=== PATIENT | female | born 1995 | race Caucasian/White ===

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

== ENCOUNTER 2017-01-17 16:59 | Emergency (ER) | payer BC ==
[~2017-01-17] VITALS: Ht 170.2 cm; Wt 84.1 kg
[2017-01-17 17:46] LABS: HEMATOCRIT 43.3 % (36.0-46.0); MCH 28.2 PG (29.0-34.0); MCHC 33.9 G/DL (30.0-36.0); MEAN PLAT.VOLUME 9.3 uM^3 (9.5-12.4); PLATELET COUNT 243 K/uL (156-360); RBC DIS.WIDTH-CV 12.1 % (11.8-14.6); RBC DIS.WIDTH-SD 36.8 % (39-53); RED BLOOD COUNT 5.22 M/uL (3.80-5.20); WHITE BLOOD COUNT 7.8 K/uL (4.1-10.2)
[2017-01-17 17:55] LABS: CHLORIDE 105 mEq/L (99-109); POTASSIUM 4.3 mEq/L (3.7-5.4); SODIUM 138 mEq/L (136-147)
[2017-01-17 17:57] LABS: GLUCOSE 94 mg/dL (70-99)
[2017-01-17 17:58] LABS: ANION GAP 10 MEQ/L (2-14)
[2017-01-17 17:59] LABS: TOTAL BILIRUBIN 0.4 mg/dL (0.0-1.0)
[2017-01-17 18:00] LABS: ALKALINE PHOSPHATASE 96 IU/L (3-129)
[2017-01-17 18:01] LABS: GFR ESTIMATE (CALCULATED) > 59 mL/min/
[2017-01-17 18:02] LABS: UREA NITROGEN (BUN) 10 mg/dL (9-23)
[2017-01-17 18:04] LABS: LIPASE 17 U/L (1.0-51.0)
[2017-01-17 18:10] LABS: QUANTITATIVE HCG < 4.0 MIU/ML
[2017-01-17 20:32] LABS: ADD MIUA? YES; BILIRUBIN NEGATIVE; BLOOD NEGATIVE; COLOR YELLOW ((YELLOW)); GLUCOSE (STRIP) NEGATIVE; KETONES 5; LEUKOCYTES NEGATIVE; NITRITE NEGATIVE; PROTEIN (STRIP) NEGATIVE; SPECIFIC GRAVITY 1.026 (1.000-1.030); UROBILINOGEN 0.2 MG/DL (0.2-1.0)
[2017-01-17 20:41] LABS: BACTERIA RARE /HPF; EPITHELIAL CELLS 1+ /HPF; MUCUS 2+ /LPF; RED BLOOD CELLS 0-5 /HPF (0-5); UCUL ADDED? NO; WHITE BLOOD CELLS 0-5 /HPF (0-5)
[2017-01-17] MEDS ORDERED: NAPROSYN500 MG PO (22:10)
[2017-01-17] MEDS ORDERED: TRAMADOL HCL50 MG PO (22:10)
[2017-01-17 22:21] VITALS: BP 122/67
== END 2017-01-17 22:21 | disposition home or self-care (01) ==
LOC: EME 16:59
DX: N80.9 Endometriosis, unspecified (principal); Z97.5 Presence of (intrauterine) contraceptive device
CPT/HCPCS: 76856; 80053; 81003; 83690; 84702; 85027; 99281; 99284

== ENCOUNTER 2017-06-20 14:28 | Emergency (ER) | payer BC ==
[~2017-06-20] VITALS: Ht 170.2 cm; Wt 85.5 kg
[~2017-06-20 14:28] MED LIST changes: +TRAMADOL HCL50 MG PO
[2017-06-20 15:21] VITALS: BP 151/84
== END 2017-06-20 17:17 | disposition left against medical advice (07) ==
LOC: EME 14:28
DX: G43.909 Migraine, unspecified, not intractable, without status migrainosus (principal); R11.2 Nausea with vomiting, unspecified; J32.9 Chronic sinusitis, unspecified; Z53.21 Procedure and treatment not carried out due to patient leaving prior to being seen by health care provider

== ENCOUNTER 2017-08-30 05:42 | Day surgery (SDC) | payer BC ==
[~2017-08-30] VITALS: Ht 170.2 cm; Wt 81.6 kg
[~2017-08-30 05:42] MED LIST changes: +MIRENA1 EACH IY; +TYLENOL EXTRA500 MG PO
[2017-08-30 06:09] VITALS: BP 123/76
[2017-08-30 09:41] VITALS: BP 110/65
[2017-08-30 10:17] VITALS: BP 117/58
== END 2017-08-30 10:22 | disposition home or self-care (01) ==
LOC: SDC 05:42
DX: G89.29 Other chronic pain (principal); R10.2 Pelvic and perineal pain; N73.6 Female pelvic peritoneal adhesions (postinfective); Z30.432 Encounter for removal of intrauterine contraceptive device; Z87.42 Personal history of other diseases of the female genital tract; Z80.49 Family history of malignant neoplasm of other genital organs; Z82.49 Family history of ischemic heart disease and other diseases of the circulatory system; Z83.3 Family history of diabetes mellitus
CPT/HCPCS: J0330; J1100; J1170; J1885; J2250; J2405; J3010; Q0175; S0020

== ENCOUNTER 2017-12-30 15:30 | Emergency (ER) | payer BC ==
[~2017-12-30] VITALS: Ht 170.2 cm; Wt 85.8 kg
[2017-12-30 16:05] LABS: HEMATOCRIT 42.3 % (36.0-46.0); HEMOGLOBIN 14.6 G/DL (11.9-15.5); MCH 28.7 PG (29.0-34.0); MCHC 34.5 G/DL (30.0-36.0); MCV 83.3 FL (83-99); PLATELET COUNT 237 K/uL (156-360); RBC DIS.WIDTH-CV 12.3 % (11.8-14.6); RBC DIS.WIDTH-SD 37.3 % (39-53); RED BLOOD COUNT 5.08 M/uL (3.80-5.20); WHITE BLOOD COUNT 7.1 K/uL (4.1-10.2)
[2017-12-30 16:26] LABS: QUANTITATIVE HCG < 4.0 MIU/ML
[2017-12-30 16:32] LABS: APPEARANCE SL.HAZY ((CLEAR)); BILIRUBIN NEGATIVE; BLOOD NEGATIVE; COLOR YELLOW ((YELLOW)); GLUCOSE (STRIP) NEGATIVE; KETONES NEGATIVE; LEUKOCYTES NEGATIVE; NITRITE NEGATIVE; PROTEIN (STRIP) 30; SPECIFIC GRAVITY 1.027 (1.000-1.030)
[2017-12-30 16:44] LABS: CHLORIDE 105 MEQ/L (99-109); POTASSIUM 3.9 MEQ/L (3.7-5.4); SODIUM 141 MEQ/L (136-147)
[2017-12-30 16:49] LABS: CREATININE 0.8 MG/DL (0.6-1.3); GFR ESTIMATE (CALCULATED) > 59 mL/min/; GLUCOSE 95 mg/dL (70-99); UREA NITROGEN (BUN) 5 mg/dL (9-23)
[2017-12-30] MEDS ORDERED: MOTRIN800 MG PO (17:07)
[2017-12-30 17:11] VITALS: BP 137/95
[2017-12-30 17:28] LABS: BACTERIA 2+ /HPF; EPITHELIAL CELLS 2+ /HPF; MUCUS 3+ /LPF; RED BLOOD CELLS NONE SEEN /HPF (0-5); WHITE BLOOD CELLS 0-5 /HPF (0-5)
== END 2017-12-30 17:13 | disposition home or self-care (01) ==
LOC: EME 15:30
PROVIDERS: Physician Assistant
DX: R10.2 Pelvic and perineal pain (principal); R11.2 Nausea with vomiting, unspecified; M54.5 Low back pain; Z87.891 Personal history of nicotine dependence
CPT/HCPCS: 80048; 81003; 84702; 85027; 99281; 99284